=== PATIENT | male | born 1975 | race Caucasian/White ===

== ENCOUNTER 2023-10-01 18:22 | Outpatient (REF) | payer MEDICAID, OTHER, SELFPAY ==
[2023-10-01 18:38] LABS: Appearance Urine Clear; Bacteria Urine None Seen (None Seen); Color Urine Yellow; Glucose Urine UA Negative (Negative); Hyaline Casts Urine 0-2 /LPF (0-2); Leukocyte Esterase Urine Negative (Negative); Nitrite Urine Negative (Negative); Specific Gravity - Urine 1.025 (1.005-1.025); Squamous Epithelial Cell Urine 0-2 /HPF (0-2); UMIC TRIGGER UACC YES; Urine Blood Trace (Negative); Urine Ketones Negative (Negative); Urine Protein Negative (Neg-Trace); WBC Urine 0-5 /HPF (0-5)
== END 2023-10-01 18:23 | disposition home or self-care (01) ==
LOC: HO.HHCLNP 18:22
PROVIDERS: Visit Provider Nurse Practitioner Primary Care
DX: R35.1 Nocturia (principal)
CPT/HCPCS: 81001

== ENCOUNTER 2023-10-03 08:49 | Outpatient (REF) | payer MEDICAID, OTHER, SELFPAY ==
[2023-10-03 12:02] LABS: Estimated Average Glucose 111 mg/dL; Hemoglobin A1c % 5.5 % (<6.0)
[2023-10-03 12:06] LABS: Cholesterol 196 mg/dL (<200); HDL Cholesterol 44 mg/dL (>40); LDL Cholesterol Calculated 99 mg/dL (<100); Triglycerides 269 mg/dL (<150)
[2023-10-03 12:23] LABS: Prostate Specific Antigen 0.95 ng/mL (<0.05-4.0)
[2023-10-03 12:36] LABS: Vitamin D 25-OH Total 31.5 ng/mL (>30)
== END 2023-10-03 08:50 | disposition home or self-care (01) ==
LOC: HO.HHCL 08:49
PROVIDERS: Visit Provider Nurse Practitioner Primary Care
DX: Z00.00 Encounter for general adult medical examination without abnormal findings (principal); R73.01 Impaired fasting glucose; R35.1 Nocturia; R79.89 Other specified abnormal findings of blood chemistry
CPT/HCPCS: 36415; 80061; 82306; 83036; 84153

== ENCOUNTER 2023-12-02 08:31 | Outpatient (REF) | payer MEDICAID, OTHER, SELFPAY ==
[2023-12-02 12:09] LABS: Alanine Aminotransferase 34 U/L (0-40); Albumin Level 4.4 g/dL (3.5-5.0); Alkaline Phosphatase 87 U/L (39-117); Anion Gap 11 (12-20); Aspartate Amino Transferase 25 U/L (5-37); Bilirubin Direct 0.2 mg/dL (0.0-0.5); Bilirubin Total 0.6 mg/dL (0.0-1.0); Blood Urea Nitrogen 20 mg/dL (9-16); Calcium 9.3 mg/dL (8.4-10.2); Carbon Dioxide 25 mmol/L (22-29); Chloride 110 mmol/L (96-108); Estimated Glomerular Filt Rate > 60; Glucose Random 100 mg/dL (60-115); Potassium 3.8 mmol/L (3.3-5.1); Sodium 142 mmol/L (135-145); Total Protein 7.4 g/dL (6.5-8.0)
== END 2023-12-02 08:32 | disposition home or self-care (01) ==
LOC: HO.HHCL 08:31
PROVIDERS: Visit Provider Nurse Practitioner Primary Care
DX: Z00.00 Encounter for general adult medical examination without abnormal findings (principal)
CPT/HCPCS: 36415; 80048; 80076

== ENCOUNTER 2023-12-03 13:05 | Outpatient (REF) | payer MEDICAID, OTHER, SELFPAY ==
[2023-12-03 16:17] LABS: Appearance Urine Clear; Color Urine Yellow; Glucose Urine UA Negative (Negative); Leukocyte Esterase Urine Negative (Negative); Nitrite Urine Negative (Negative); PH 6.5 (5.0-9.0); Specific Gravity - Urine <= 1.005 (1.005-1.025); Urine Blood Negative (Negative); Urine Ketones Negative (Negative); Urine Protein Negative (Neg-Trace)
== END 2023-12-03 13:06 | disposition home or self-care (01) ==
LOC: HO.HHCL 13:05
PROVIDERS: Visit Provider Nurse Practitioner Primary Care
DX: R35.1 Nocturia (principal)
CPT/HCPCS: 81003

== ENCOUNTER 2024-04-27 08:32 | Outpatient (REF) | payer MEDICAID, OTHER, SELFPAY ==
[2024-04-27 11:43] LABS: Cholesterol 246 mg/dL (<200); HDL Cholesterol 49 mg/dL (>40); LDL Cholesterol Calculated 124 mg/dL (<100); Triglycerides 369 mg/dL (<150)
== END 2024-04-27 08:33 | disposition home or self-care (01) ==
LOC: HO.HHCL 08:32
PROVIDERS: Visit Provider Nurse Practitioner Primary Care
DX: E78.1 Pure hyperglyceridemia (principal)
CPT/HCPCS: 36415; 80061

== ENCOUNTER 2024-04-28 12:44 | Outpatient (REF) | payer MEDICAID, OTHER, SELFPAY ==
--- NOTE | ~2024-04-28 | XR_ITS ---
EXAMINATION: Bilateral knee series CLINICAL INFORMATION: Bilateral knee pain COMPARISON: None. TECHNIQUE: 2 views of each knee FINDINGS: Right knee: The bony structures and soft tissues are normal without effusion. Left knee: The bones joints and soft tissues are normal without effusion. XR/XR knee RT 2V IMPRESSION: RIGHT KNEE: Normal. LEFT KNEE: Normal. Electronically signed by: Jb Lange MD 05/25/2024 01:19 PM EDT
--- NOTE | ~2024-04-28 | XR_ITS ---
EXAMINATION: Bilateral knee series CLINICAL INFORMATION: Bilateral knee pain COMPARISON: None. TECHNIQUE: 2 views of each knee FINDINGS: Right knee: The bony structures and soft tissues are normal without effusion. Left knee: The bones joints and soft tissues are normal without effusion. XR/XR knee LT 2V IMPRESSION: RIGHT KNEE: Normal. LEFT KNEE: Normal. Electronically signed by: Jb Lange MD 05/25/2024 01:19 PM EDT RP
== END 2024-04-28 12:45 | disposition home or self-care (01) ==
LOC: HO.HHCX 12:44
PROVIDERS: Visit Provider Nurse Practitioner Primary Care
DX: M25.561 Pain in right knee (principal); M25.562 Pain in left knee; G89.29 Other chronic pain
CPT/HCPCS: 36415; 73560; 83036; 84443

== ENCOUNTER 2024-04-28 13:19 | Outpatient (REF) | payer MEDICAID, OTHER, SELFPAY ==
[2024-04-28 16:23] LABS: Estimated Average Glucose 114 mg/dL; Hemoglobin A1c % 5.6 % (<6.0)
[2024-04-28 17:08] LABS: TSH reflex Free T4 1.46 uIU/mL (0.32-4.0)
== END 2024-04-28 13:20 | disposition home or self-care (01) ==
LOC: HO.HHCL 13:19
PROVIDERS: Visit Provider Nurse Practitioner Primary Care
DX: E78.1 Pure hyperglyceridemia (principal)
CPT/HCPCS: 36415; 83036; 84443

== ENCOUNTER 2024-08-04 10:08 | Outpatient (REF) | payer MEDICAID, OTHER, SELFPAY ==
[2024-08-04 11:38] LABS: Alanine Aminotransferase 45 U/L (0-40); Albumin Level 4.4 g/dL (3.5-5.0); Alkaline Phosphatase 82 U/L (39-117); Anion Gap 9 (12-20); Aspartate Amino Transferase 33 U/L (5-37); Bilirubin Total 0.6 mg/dL (0.0-1.0); Blood Urea Nitrogen 22 mg/dL (9-16); Calcium 8.7 mg/dL (8.4-10.2); Carbon Dioxide 24 mmol/L (22-29); Chloride 110 mmol/L (96-108); Cholesterol 138 mg/dL (<200); Estimated Glomerular Filt Rate > 60; Glucose Random 116 mg/dL (60-115); HDL Cholesterol 50 mg/dL (>40); LDL Cholesterol Calculated 61 mg/dL (<100); Potassium 3.8 mmol/L (3.3-5.1); Sodium 139 mmol/L (135-145); Total Protein 7.2 g/dL (6.5-8.0); Triglycerides 135 mg/dL (<150)
[2024-08-04 11:44] LABS: Estimated Average Glucose 117 mg/dL; Hemoglobin A1C 149.6628 umol/L; Hemoglobin A1c % 5.7 % (<6.0); Total Hemoglobin (HGBA1C) 3843.9213 umol/L
== END 2024-08-04 10:09 | disposition home or self-care (01) ==
LOC: HO.HHCL 10:08
PROVIDERS: Visit Provider Nurse Practitioner Primary Care
DX: E78.5 Hyperlipidemia, unspecified (principal)
CPT/HCPCS: 36415; 80053; 80061; 83036

== ENCOUNTER 2024-12-01 09:29 | Outpatient (REF) | payer MEDICAID, OTHER, SELFPAY ==
--- OUTSIDE RECORDS SUMMARY | 2024-12-01 10:41 | XMS_ITS | Encounter Summary ---
Author Organization [email or web address] Address [address] [place] [address] Care Team Providers Care Optical Instrument Assembler Name Role Phone Korina Hunter Primary Care Provider [phone] Reason for Visit * Reason Onset Date Comments Appointment Request 04/07/2024 Encounter Details Date Type Department Care Team ([facility] st Contact Info) Description 04/07/2024 Telephone [facility] MEDICINE [address] [place], [place] [phone] Korina Hunter ANP [address] [place], [place] [phone] Appointment Request Social History Tobacco Use Types Packs/Day Years Used Date Smoking Tobacco: Never Passive Smoke Exposure: Never Smokeless Tobacco: Never Alcohol Use Standard Drinks/Week Comments Never 0 (1 standard drink = 0.6 oz pur e alcohol) Housing Stability Answer Date Recorded What is your housing situation today? I have gladys helm 10/01/[address] you li ve. Do you have problems with any of the following? None of the above 10/01/2023 Food Insecurity Answer Date Recorded Within the past 12 months, y ou worried that your food would run out before you got money to buy more: Never True 10/01/2023 Within the past 12 months,th e food you bought just didn't last and you didn't have enough money to get more: Never True 05/2024 Transportation Answer Date Recorded In the past 12 months, has l ack of transportation kept you from medical appts, meetings, work or from getting things needed for daily living? No 10/01/2023 Utilities Answer Date Recorded In the past 12 months, has t he [employer], [employer], oil or water company threatened to shut off services in your home? No 10/01/2023 Depression Answer Date Recorded Patient Health Questionnaire-2 Score 0 10/01/2023 Sex and Gender Information Value Date Recorded Sex Assigned at Male 07/23/2022 10:18 AM EDT Legal Sex Male 10:18 AM EDT Gender Identity Male 07/23/2022 10:18 AM EDT Sexual Orientation Straight 05/01/2024 9: 27 AM EDT documented as of this encounter Miscellaneous Notes * Telephone Encounter - Delma Montgomery RN - 04/07/2024 11:06 AM EDT Triage call regarding Pt portal message below, with [employer]ator ID [id number] Pt reports a chronic bilateral knee pain which has increased. Pt reports difficulty walking and going up and down stairs. Pt does hear some cracking sound in knees. Limps on occasion. Pt is taking tylenol with some effect. Advised to try ice /heat at home. Pt is offered an appt next week but, declines asking for apt later in April. ASK apt [id number] 04/28/24 with PCP. Pt agreed with disposition . Insurance is verified as active prior to booking . Protocol Used: Knee Pain (Adult) Protocol-Based Disposition: See in Office or Video Visit within 2 Weeks Video visit not offered Positive Triage Question: * Knee pain is a chronic symptom (recurrent or ongoing AND lasting > 4 weeks) * All higher-acuity triage questions were negative Care Advice Discussed: * Reassurance and Education - Knee Pain * Pain Medicines * Pain Medicines - Extra Notes and Warnings * Reasons To Call Back - Moderate pain (e.g., limping) lasts more than 3 days - Mild pain lasts more than 7 days - Signs of infection occur (e.g., spreading redness, warmth, fever) - You become worse * Use a Cold Pack for Pain * Use Heat After 48 Hours for Pain ----- Message ----- From: aMxi Mercado Sent: 04/07/2024 8:59 AM EDT To: [facility] Front Office Subject: Appointment Request Appointment Request From: Maxi Mercado With Provider: Ayah Schmidt MD [[facility]] Preferred Date Range: 05/05/2024 - 05/08/2024 Preferred Times: Any Time Reason for visit: New Problem Visit Comments: Knee pain * Telephone Encounter - Arian Griffin - 04/07/2024 9:05 AM EDT Tc from patient calling to cancel sick-onsite appt on 04/14 would like to be rescheduled for April or May documented in this encounter Plan of Treatment Not on file documented as of this encounter Visit Diagnoses Diagnosis Chronic pain of both knees documented in this encounter Care Teams Optical Instrument Assembler Relationship Specialty Start Date End Date Korina Hunter ANP [address] [place] [id number] PCP - General Family Medicine 12/05/22 documented as of this encounter
--- OUTSIDE RECORDS SUMMARY | 2024-12-01 10:41 | XMS_ITS | Encounter Summary ---
Author Organization [facility] Address [address] [place] [address] Care Team Providers Care Mechanical Press Operator Name Role Phone Ayah Fields MD Primary Care Provide r Korina Hunter Primary Care Provider [phone] Encounter Details Date Type Department Care Team (Latest Contact Info) Description 01/04/2021 [facility] CONVERSIONS Dental, Provider, DDS Social History Tobacco Use Types Packs/Day Years Used Date Smoking Tobacco: Never Assessed Sex and Gender Information Value Date Recorded Sex Assigned at Male 07/23/2022 10:18 AM EDT Legal Sex Male 10:18 AM EDT Gender Identity Male 07/23/2022 10:18 AM EDT Sexual Orientation Straight 05/01/2024 9: 27 AM EDT documented as of this encounter Plan of Treatment Not on file documented as of this encounter Visit Diagnoses Not on filedocumented in this encounter Care Teams Mechanical Press Operator Relationship Specialty Start Date End Date Ayah Fields MD [address] [place] [phone] PCP - General Family Medicine 06/04/18 12/04/22 Korina Hunter ANP [address] [place] [id number] PCP - General Family Medicine 12/05/22 documented as of this encounter
--- OUTSIDE RECORDS SUMMARY | 2024-12-01 10:41 | XMS_ITS | Encounter Summary ---
Author Organization [employer] Address [address] [place] [address] Care Team Providers Care Belt Maker Name Role Phone Dale Korina [place] Primary Care Provider [phone] Reason for Visit * Reason Onset Date Comments Lab Orders 11/30/2024 Encounter Details Date Type Department Care Team ([facility] st Contact Info) Description 11/30/2024 Telephone [facility] MEDICINE [address] [place], [place] [phone] Marietta Mckinnon RN [address] [place], [place] [phone] Lab Orders Social History Tobacco Use Types Packs/Day Years Used Date Smoking Tobacco: Never Passive Smoke Exposure: Never Smokeless Tobacco: Never Alcohol Use Standard Drinks/Week Comments Never 0 (1 standard drink = 0.6 oz pur e alcohol) Alcohol Answer Date Recorded Frequency of Alcohol Consumption Not on file 08/04/2024 Average Number of Drinks Not on file 024 Frequency of Binge Drinking Not on file 07/24 Score 0 08/04/2024 Housing Stability Answer Date Recorded What is [...] the past 12 months, has t he electric, gas, oil or water company threatened to shut off services in your home? No 10/01/2023 Depression Answer Date Recorded Patient Health Questionnaire-2 Score 0 10/01/2023 Internet Access Answer Date Recorded Internet Access Q1 Yes 07/27/2024 Internet Access Q2 Not on file 07/27/2024 Sex and Gender Information Value Date Recorded Sex Assigned at Male 07/23/2022 10:18 AM EDT Legal Sex Male 10:18 AM EDT Gender Identity Male 07/23/2022 10:18 AM EDT Sexual Orientation Straight 05/01/2024 9: 27 AM EDT documented as of this encounter Miscellaneous Notes * Telephone Encounter - Marietta Mckinnon RN - 11/30/2024 10:06 AM EDT Received [employer] message from pt asking if he needs MMR vaccine. Titer ordered. Explained process to pt and advised to come to the lab. If not immune, can get MMR at [facility]. documented in this encounter Plan of Treatment Scheduled Orders Name Type Priority Associated Diagnoses Orde r Schedule Measles, Mumps, and Rubella (MMR) Antibodies??(IgG) Panel, Immune Status Lab Routine Immunity status testing Expected: 11/30/2024 (Approximate), Expires: 11/30/2025 documented as of this encounter Visit Diagnoses Diagnosis Immunity status testing Antibody response examination documented in this encounter Care Teams Belt Maker Relationship Specialty Start Date End Date Korina Hunter ANP [address] [place] [address] PCP - General Family Medicine 12/05/22 documented as of this encounter
--- OUTSIDE RECORDS SUMMARY | 2024-12-01 10:41 | XMS_ITS | Clinical Summary ---
Author Organization [facility] Address [address] [facility] [address] [place] [address] Care Team Providers Care Certified Fire Investigator Name Role Phone Korina Hunter KAYLEEN Primary Care Provider [phone] Allergies No known active allergies Medications mineral oil-hydrophilic petrolatum (Aquaphor) ointment apply to affected area after each hand washing or prior to immersion 1 Active atorvastatin (Lipitor) 10 MG tabletIndicatio ns:Hypertriglyc eridemia,Dyslip idemia Take 1 tablet (10 mg) by mouth Once per day. 90 tablet 3 4 04/28/20 25 Active omega-3 acid ethyl esters (Lovaza) 1 g capsuleIndicati ons:Hypertrigly ceridemia Take 2 capsules (2 g) by mouth 2 times daily. 360 capsule 3 4 04/28/20 25 Active nystatin (Mycostatin) creamIndication s:Tinea cruris APPLY TOPICALLY TWICE DAILY 30 g 1 4 Active Active Problems Problem Noted Date Diagnosed Date Atypical chest pain 08/25/2022 Chronic pain of both knees 08/25/2022 Dyslipidemia 08/25/2022 Onychomycosis 08/25/2022 Vitamin D deficiency 08/25/2022 Hypertriglyceridemia 09/11/2016 Encounters Date Type Department Care Team Description 11/30/2024 Telephone [facility] MEDICINE [address] [place] [address] Marietta Mckinnon RN Lab Orders 10/05/2024 Telephone [facility] MEDICINE [address] [place] [address] Aleks Ortiz MA November10/01/2024 Telephone [facility] OPTOMETRY [address] [place] [address] Nichole Penaloza, OD 09/04/2024 Telephone [facility] MEDICINE [address] [place] [address] Korina Hunter ANP from Last 3 Months Immunizations Name Administration Dates Next Due Influenza injectable quadriv alent preservative free 07/30/2023,07/30/2019,09/11/2016,2014 Influenza, seasonal, injecta ble, preservative free 08/04/2024 Pfizer Covid-19 Vaccine 12+ 08/04/2024 Tdap 03/09/2016 Family History Medical History Relation Name Comments Cirrhosis Father Tuberculosis Mother Hyperlipidemia Other Relation Name Status Comments Father Mother Other Social History Tobacco Use Types Packs/Day Years Used Date Smoking Tobacco: Never Passive Smoke Exposure: Never Smokeless Tobacco: Never Tobacco Cessation:Counseling Given: Not Answered Alcohol Use Standard Drinks/Week Comments Never 0 [...] Orientation Straight 05/01/2024 9: 27 AM EDT Last Filed Vital Signs Vital Sign Reading Time Taken Comments Blood Pressure 124/74 08/04/2024 9:23 AM EST Pulse 58 08/04/2024 9:23 AM EST Temperature 36.6 ??C (97.9 ??F) 08/04/2024 9:23 AM ES T Respiratory Rate 16 08/04/2024 9:23 AM EST Oxygen Saturation 96% 08/04/2024 9:23 AM EST Inhaled Oxygen Concentration - - Weight 97.5 kg (215 lb) 08/04/2024 9:23 AM EST Height 165.1 cm (5' 5 ) 05/08/2024 10:31 AM EDT Body Mass Index 35.78 05/08/2024 10:31 AM EDT Plan of Treatment Health Maintenance Due Date Last Done Comments CT Colonography 1976 Colonoscopy 1976 Colorectal Cancer Screening 1976 FIT DNA/Cologuard 1976 FIT 1976 FOBT 1976 Sigmoidoscopy 1976 Family Planning (PISQ) 01/06/1991 Hepatitis C Screening 01/06/1994 Hepatitis B Vaccines (1 of 3 - 19+ 3-dose series) 01/06/1995 Depression Screening 10/01/2024 10/01/2023, 10/01/19 24 SDOH Screening 10/01/2024 10/01/2023 Alcohol/Substance Use Screening 08/04/2025 08/04/2024 Diabetes: Hemoglobin A1C 08/04/2025 024, 04/28/2024, 10/03/2023, Additional history exists Tobacco Screening 08/04/2025 08/04/2024 Zoster Vaccines (1 of 2) 01/06/2026 DTaP/Tdap/Td Vaccines (2 - Td or Tdap) 03/09/2026 03/09/2016 Lipid Panel 08/04/2029 08/04/2024, 08/0 01/2024, 10/03/2023, Additional history exists RSV Patients and Patients Aged 60 years or older (1 - 1-dose 75+ series) 01/06/2051 HIV Screening Completed 02/05/2023 COVID-19 Vaccine Completed 08/04/2024, 03/2023, 08/27/2022, Additional history exists Influenza Vaccine Completed 08/04/2024, , 07/30/2019, Additional history exists HIB Vaccines Aged Out No longer eligi ble based on patient's age to complete this topic HPV Vaccines Aged Out No longer eligi ble based on patient's age to complete this topic Hepatitis A Vaccines Aged Out No long er eligible based on patient's age to complete this topic IPV Vaccines Aged Out No longer eligi ble based on patient's age to complete this topic Meningococcal Vaccine Aged Out No fransisca emanuel eligible based on patient's age to complete this topic Pneumococcal Vaccine: Pediatrics (0 to 5 Years) and At-Risk Patients (6 to 49) Years) Aged Out No longer eligible based on patient's age to complete this topic RSV under 20 months Aged Out No longe r eligible based on patient's age to complete this topic Rotavirus Vaccines Aged Out No longer eligible based on patient's age to complete this topic Procedures Procedure Name Priority Date/Time Associated Diagnosis Comments HEMOGLOBIN A1C Routine 08/04/2024 10:10 AM EST Dyslipidemia LIPID PANEL, STANDARD Routine 08/04/2024 10:10 AM EST Dyslipidemia HIV 1/2 ANTIGEN/ANTIBODY, FOURTH GENERATION W/RFL Routine 02/05/2023 3:51 PM EDT Sonia rash of groin from Last 3 Months or Most Recently Relevant to Health Maintenance Results * Hemoglobin A1c (08/04/2024 10:10 AM EST) Hemoglobin A1c 5.7 <6.0 % [facility] Comment:Hemoglobin A1C Refer ence Range Adults: 4.8 - 6.0 % Non diabetic: < 6.0 % Goal: < 7.0 %Additional Action Suggested: > 8.0 %Note: Hemoglobin A1c results are invalid for patients with abnormal amounts of HbF. Blood transfusions may impact the HbA1c concentration in the patient sample. Estimated Average Glucose 117 mg/dL [facility] Comment:eAG = Estimated ave rage glucose which is %A1C expressed asaverage glucose, using the formula of the [id number] Glucose study (ADAG), Diabetes Care, Vol.31,#8,Apr. 2007 Blood Venous blood specimen / Unknown 08/04/2024 10:10 AM EST 08/04/2024 11:22 AM EST Korina Hunter ANP LAB BLOOD ORDERABLES Final Resul t [facility] [address] [place] [phone] * Lipid Panel, Standard (08/04/2024 10:10 AM EST) Triglycerides 135 <150 mg/dL [facility] Comment:Desirable Triglyceri de: less than 150 mg/dLBorderline High Triglyceride 150-199 mg/dLHigh Triglyceride: 200-499 mg/dLVery High Triglyceride: greater than or equal to 5OO mg/dL Cholesterol 138 <200 mg/dL [facility] Comment:Desirable Cholestero l: less than 200 mg/dLBorderline High Cholesterol: 200-239 mg/dLHigh Cholesterol: greater than 239 mg/dL LDL Cholesterol Calculated 61 <100 mg/dL [facility] Comment:Desirable LDL: less than 100 mg/dLNear Optimal/Above Optimal LDL: 110- 129 mg/dLBorderline High LDL: 130-159 mg/dLHigh LDL: 160-189 mg/dLVery High LDL: greater than or equal to 190 mg/dL HDL Cholesterol 50 >40 mg/dL [facility] Comment:Desirable HDL: great er than 40 mg/dL Note: This HDL assay may give artificially low results in patients with liver disease. Blood Venous blood specimen / Unknown 08/04/2024 10:10 AM EST 08/04/2024 11:22 AM EST Korina Hunter ANP LAB BLOOD ORDERABLES Final Resul t [facility] [address] [place] [address] [phone] * HIV-1/2 Antigen and Antibodies, Fourth Generation, with Reflexes (02/05/2023 3:51 PM EDT) HIV Antigen/Antibody, 4th Generation NON-REAC TIVE NON-REAC TIVE [employer] [facility] Comment: HIV-1 antigen and HIV-1/HIV-2 antibodies were not detected. There is no laboratory evidence of HIV infection. PLEASE NOTE: This information has been disclosed to you from records whose confidentiality may be protected by state law. ??If your state requires such protection, then the state law prohibits you from making any further disclosure of the information without the specific written consent of the person to whom it pertains, or as otherwise permitted by law. A general authorization for the release of medical or other information is NOT sufficient for this purpose. ?? For additional information please refer to http://education.[employer]/faq/PTS113 (This link is being provided for informational/ educational purposes only.) The performance of this assay has not been clinically validated in patients less than 2 years old. Blood Venous blood specimen / Unknown 02/05/2023 3:51 PM EDT 02/05/2023 3:51 PM EDT Marilyn Sullivan [facility] LAB BLOOD ORDERABLES Final Result [facility] [address], [place] [address] [employer] [facility] [address] [place] [phone] from Last 3 Months or Most Recently Relevant to Health Maintenance Insurance [employer] ST[place] AD[place] Care Teams Certified Fire Investigator Relationship Specialty Start Date End Date Korina Hunter ANP [address] [place] [address] PCP - General Family Medicine 12/05/22
--- OUTSIDE RECORDS SUMMARY | 2024-12-01 10:41 | XMS_ITS | Clinical Summary ---
Author Organization [facility] Address [address] [place] [address] Care Team Providers Care Material Attendant Name Role Phone Korina Hunter Primary Care Provider [phone] Allergies No known active allergies Medications simvastatin (ZOCOR) 20 mg tablet Take 20 mg by mouth 2 (two) times a day. Active aspirin 81 mg EC tablet Take 81 mg by mouth daily. Active acetaminophen (TYLENOL) 325 mg tablet Take 650 mg by mouth every 6 hours as needed for pain. Active Active Problems Problem Noted Date Diagnosed Date Chest pain 11/17/2020 Assessment & Plan (11/17/2020 4:16 PM EST): The patient is presenting with atypical chest pain today that has been going on for several weeks. The pain appears to be non-cardiac in etiology given that it is sharp, not associated with exertion and does not seem to improve with rest or with sublingual nitroglycerin. We discussed with the patient obtaining a coronary CTA with calcium score to better prognosticate and to have absolute certainty that his symptoms are not cardiac related. He is concerned that he lives in [place] and returning back to [facility] is very complicated for him. After shared decision making, we will observe the patient's symptoms and if they worsen or persist, we will perform a CTA. In the meantime, we recommend continuing with a high intensity statin for primary prevention of atherosclerotic cardiovascular disease. Social History Tobacco Use Types Packs/Day Years Used Date Smoking Tobacco: Never Smokeless Tobacco: Never Alcohol Use Standard Drinks/Week Comments Not Currently 0 (1 standard drink = 0.6 oz pur e alcohol) Sex and Gender Information Value Date Recorded Sex Assigned at Male 07/01/2024 8:09 AM EDT Legal Sex Male 9:41 AM EST Gender Identity Male 07/01/2024 8:09 AM EDT Sexual Orientation Not on file Last Filed Vital Signs Vital Sign Reading Time Taken Comments Blood Pressure 110/66 11/17/2020 2:04 PM EST Pulse 53 11/17/2020 2:03 PM EST Temperature - - Respiratory Rate 16 11/17/2020 2:03 PM EST Oxygen Saturation 99% 11/17/2020 2:03 PM EST Inhaled Oxygen Concentration - - Weight 92.1 kg (203 lb) 11/17/2020 2:03 PM EST Height 152.4 cm (5') 11/17/2020 2:03 PM EST Body Mass Index 39.65 11/17/2020 2:03 PM EST Plan of Treatment Scheduled Procedures Name Priority Associated Diagnoses Date/Ti me COLONOSCOPY SCREENING, LOW R ISK WITH POSSIBLE MODERATE SEDATION Screen for colon cancer Health Maintenance Due Date Last Done Comments Cologuard 1976 Colon Cancer Screening 1976 Colonoscopy 1976 FOBT / Fit Test 1976 HIV Screening 1976 Sigmoidoscopy 1976 Hepatitis B Vaccines (1 of 3 - 19+ 3-dose series) 01/06/1995 COVID-19 Vaccine ( season) 2024 07/30/2023, 08/27/2022, 08/30/2021, Additional history exists Influenza Vaccine (#1) 2024 , 07/30/2019, 09/11/2016, Additional history exists Alcohol/Substance Use Screening 09/23/2024 DTaP,Tdap,and Td Vaccines (2 - Td or Tdap) 03/09/2026 03/09/2016 RSV Vaccine (60+ years old and patients) (1 - 1-dose 75+ series) 01/06/2051 Pneumococcal Vaccine: Pediatric (0-5 Years) and At-Risk Patients (6-50 Years) Aged Out No longer eligible based on patient's age to complete this topic Insurance [place] Care Teams Material Attendant Relationship Specialty Start Date End Date Korina Hunter [address] [place] [phone] PCP - General 05/04/24
--- OUTSIDE RECORDS SUMMARY | 2024-12-01 10:41 | XMS_ITS | Referral Summary ---
Author Organization [facility] Address [address] [place] [address] Care Team Providers Care Advanced Manufacturing Engineer Name Role Phone Korina Hunter Primary Care Provider [phone] Allergies No known active allergies Medications simvastatin [...] He is concerned that he lives in [place] and returning back to [facility] is very complicated for him. After [...] POSSIBLE MODERATE SEDATION Screen for colon cancer Insurance [place] Care Teams Advanced Manufacturing Engineer Relationship Specialty Start Date End Date Korina Hunter [address] [place] [phone] PCP - General 05/04/24
[2024-12-02 19:28] LABS: Mumps Virus IgG Antibody 9.28 AU/mL; Rubella IgG Antibody 9.73 Index; Rubeola IgG (Measles) >300.00 AU/mL
== END 2024-12-01 09:30 | disposition home or self-care (01) ==
LOC: HO.HHCL 09:29
PROVIDERS: Visit Provider Nurse Practitioner Primary Care
DX: Z01.84 Encounter for antibody response examination (principal)
CPT/HCPCS: 36415; 86735; 86762; 86765